=== PATIENT | male | born 1965 | race Caucasian/White ===

== ENCOUNTER 2021-02-26 13:08 | Emergency (ER) | payer BC, SELFPAY ==
[2021-02-26 13:15] VITALS: BP 132/85; PULSE 70; RESP 18; TEMP 36.5; O2SAT 97
--- NOTE | 2021-02-26 13:54 | ED.GENADUL_ITS ---
Discharge Plan Disposition Patient Disposition: HOME Condition: Good Discharge Details Clinical Impression: Penile swelling, Swelling of eyelid Primary Care Provider: Unknown,Unknown ED Provider: Nel Finney Home Meds and New Rx's Prescriptions: New prednisone 20 mg tablet 40 mg PO DAILY 3 Days Qty: 6 RF: 0 Discharge Instructions Additional Instructions: Take Benadryl 25 to 50 mg every 4-6 hours, cool compresses Take prednisone, you received your first dose here, take your next dose tomorrow and extend it for the next several days Try to refrain from itching Return with pain, difficulty urinating, or with any new or progressing symptoms Discharge Data Discharge Date/Time-TO BE ENTERED AT DEPARTURE: 02/26/21 14:08 Medical Decision Making no clinical evidence of myra's gangrene reported ability to urinate without difficulty no erythema or rashes noted no evidence of insect bite pt is camping, likely contact related, will trial benadryl and prednisone pt does not take any medications no airway involvement vitals stable recheck in 48 hours recommended early return precautions discussed Differential Diagnosis Differential Diagnosis: angiodema, contact dermatitis, myra's gangrene, insect bite Medical Records Medical records reviewed: Yes I reviewed the patient's medical records. HPI General Date/Time Provider Initiated Documentation: 02/26/21 13:37 . Limitations to Documentation: no limitations . Information obtained by: patient . HPI Narrative: This 55-year-old gentleman presents with swelling and itching to his penis and his right eyelid. He denies any difficulty swallowing or shortness of breath. Denies lisinopril or any additional medication usage. Denies any rashes aside from on his arms, he thinks he was exposed to poison oak. He denies known exposure to the genital area. He is able to urinate reportedly without difficulty. He denies any history of anaphylaxis. He denies any pain. Related Data Home Medications Medication Instructions Recorded Confirmed prednisone 40 mg PO DAILY 3 Days #6 tab 02/26/21 Previous Rx's Medication Instructions Recorded prednisone 40 mg PO DAILY 3 Days #6 tab 02/26/21 Allergies Allergy/AdvReac Type Severity Reaction Status Date / Time No Known Allergies Allergy Unverified 02/26/21 13:19 General Stated Complaint: RashLesion ANTHONY: 3 Review of Systems Narrative: Review of systems obtained x7 aside from where indicated in HPI PFSH Social History Smoking/Tobacco Use Status: Never Smoking risk assessment performed?: Yes Alcohol Intake: former Drug use: Daily Substance use type: marijuana Do you feel safe at home: Yes Do you feel safe in your relationship?: Yes Exam Const General: healthy appearing and no acute distress HENMT Other: upper right eyelid with mild swelling no proptosis, erythema, rash or tenderness uvula midline, no perioral swelling no stridor Eyes Pupils: PERRL Resp Effort & Inspection: normal respiratory effort Auscultation: clear to auscultation bilaterally Other: edema noted to glans and mid shaft, no rash or erythema, non-tender, no testicular involvement or crepitus, no skin discoloration Skin General skin exam: no rashes or lesions noted Neuro General: patient alert and patient oriented x3 Course Vital Signs Vital signs: Vital Signs Temperature 36.5 C 02/26/21 13:15 Pulse 70 02/26/21 13:15 Respiratory Rate 18 02/26/21 13:15 Blood Pressure 132/85 02/26/21 13:15 Pulse Oximetry 97 02/26/21 13:15 Temperature 36.5 C 02/26/21 13:15 Temperature Source Temporal Artery Scan 02/26/21 13:15 Pulse 70 02/26/21 13:15 Respiratory Rate 18 02/26/21 13:15 Respiratory Effort Non-Labored 02/26/21 13:19 Blood Pressure 132/85 02/26/21 13:15 Blood Pressure Position Sitting 02/26/21 13:15 Pulse Oximetry 97 02/26/21 13:15 Oxygen Delivery Method Room Air 02/26/21 13:15 Oxygen Flow Rate 0 02/26/21 13:15 Pain Level 6 02/26/21 13:15
[2021-02-26] MEDS: predniSONE 20 MG TAB 60 MG PO (14:03)
[2021-02-26 14:05] VITALS: BP 141/80; PULSE 64; TEMP 36.7; O2SAT 99
== END 2021-02-26 14:08 | disposition home or self-care (01) ==
PROVIDERS: Emergency Provider Physician Assistant
DX: N48.89 Other specified disorders of penis (principal); H02.841 Edema of right upper eyelid
CPT/HCPCS: 99283; J7512